=== PATIENT | female | born 1980 | race Hispanic/Latino ===

== ENCOUNTER 2023-12-01 06:33 | Day surgery (SDC) | payer OTHER ==
[2023-11-27 16:57] VITALS: BMI 35.9
[2023-11-27 17:29] LABS: BHCG - Serum Negative (NEGATIVE); Pregs Control Background? CLEAR/WHITE (CLR/WHITE); Pregs Control Bar Appear? YES (CONTROL BAR)
[2023-11-27 17:39] LABS: Hematocrit 26.8 % (34.9-44.5); Hemoglobin 7.6 g/dL (12.0-15.5); Mean Corpuscular HGB CONC 28.4 g/dL (32.0-36.0); Mean Corpuscular Volume 70.5 fL (81.6-98.3); Platelet Count 387 10x3/uL (150-450); RBC Distribution Width 24.5 % (11.5-14.5); White Blood Cell (WBC) Count 9.5 10x3/uL (3.5-10.5)
[2023-12-01] MEDS ORDERED: EPINEPHrine 1 MG/ML VIAL ONE (13:28)
[2023-12-01] MEDS ORDERED: Bupivacaine PF 0.5% 30 ML VIAL ONE (13:28)
[2023-12-01] MEDS ORDERED: CEFAZOLIN 2 GM VIAL ONE (13:35)
[2023-12-01] MEDS ORDERED: Midazolam HCl 2 mg/2 ml Vial ONE ×2 (14:02→14:30)
[2023-12-01] MEDS ORDERED: metroNIDAZOLE 500 MG (100 mL) BAG ONE (14:03)
[2023-12-01] MEDS ORDERED: Famotidine/PF 20 mg/2ml Vial ONE (14:08)
[2023-12-01] MEDS ORDERED: CeleCOXIB 100 MG CAP ONE (14:09)
[2023-12-01] MEDS ORDERED: Gabapentin 300 MG CAP ONE (14:10)
[2023-12-01] MEDS ORDERED: PROPOFOL 20 ML ONE (14:30)
[2023-12-01] MEDS ORDERED: fentaNYL 50 mcg/mL 1 mL Vial ONE (14:30)
[2023-12-01] MEDS ORDERED: Ondansetron PF 4 MG/2 ML Vial ONE (14:31)
[2023-12-01] MEDS ORDERED: Lidocaine 1% PF 5 ML VIAL ONE (14:31)
[2023-12-01] MEDS ORDERED: Rocuronium Bromide 10 MG/ML (10ML VIAL) ONE (14:31)
[2023-12-01] MEDS ORDERED: Dexamethasone 4 mg/ml Vial ONE (14:31)
[2023-12-01] MEDS ORDERED: SUGAMMADEX SODIUM 200 MG/2 ML VIAL ONE (15:51)
[2023-12-01] MEDS ORDERED: Ketorolac Tromethamine 30 MG (1 mL) VIAL ONE (16:29)
== END 2023-12-01 17:40 | disposition home or self-care (01) ==
LOC: CSHSDC 06:33
PROVIDERS: ATTEND Obstetrics & Gynecology
PROC: 0UT94ZZ Resection of Uterus, Percutaneous Endoscopic Approach (ICD-10-PCS; principal; 2023-12-01)
PROC: 0UB24ZZ Excision of Bilateral Ovaries, Percutaneous Endoscopic Approach (ICD-10-PCS; principal; 2023-12-01)
PROC: 0UB74ZZ Excision of Bilateral Fallopian Tubes, Percutaneous Endoscopic Approach (ICD-10-PCS; principal; 2023-12-01)
DX: D25.0 Submucous leiomyoma of uterus (principal); N72 Inflammatory disease of cervix uteri; N80.03 Adenomyosis of the uterus; N83.02 Follicular cyst of left ovary; N83.01 Follicular cyst of right ovary; N92.0 Excessive and frequent menstruation with regular cycle; N94.6 Dysmenorrhea, unspecified; R93.89 Abnormal findings on diagnostic imaging of other specified body structures
CPT/HCPCS: 84703; 85027; 86850; 86900; 86901; 86922; 88307; C9250; J0171; J0665; J1100; J1885; J2250; J2405; J2704; J3010; S0028